=== PATIENT | female | born 1950 | race Caucasian/White ===

== ENCOUNTER 2019-04-13 11:24 | Emergency (ER) | payer OTHER ==
[~2019-04-13] VITALS: Ht 172.7 cm; Wt 129.3 kg
[2019-04-13] MEDS ORDERED: PLAVIX75 MG (12:57)
[2019-04-13] MEDS ORDERED: GABAPENTIN600 MG (12:58)
[2019-04-13] MEDS ORDERED: IRBESARTAN150 MG (12:59)
[2019-04-13] MEDS ORDERED: OMEPRAZOLE20 MG (13:00)
[2019-04-13] MEDS ORDERED: LIPITOR40 MG (13:00)
[2019-04-13] MEDS ORDERED: ANASTROZOLE1 MG (13:01)
[2019-04-13] MEDS ORDERED: HUMALOG MI100 UNIT/2 (13:01)
== END 2019-04-13 16:05 | disposition home or self-care (01) ==
LOC: ER 11:24
DX: S00.83XA Contusion of other part of head, initial encounter (principal); S80.02XA Contusion of left knee, initial encounter; S40.012A Contusion of left shoulder, initial encounter; W18.39XA Other fall on same level, initial encounter; Y93.89 Activity, other specified; Y92.098 Other place in other non-institutional residence as the place of occurrence of the external cause; Y99.8 Other external cause status

== ENCOUNTER 2023-12-16 18:21 | Emergency (ER) | payer OTHER ==
[~2023-12-16] VITALS: Ht 172.7 cm; Wt 111.6 kg
[~2023-12-16 18:21] MED LIST: ANASTROZOLE1 MG; GABAPENTIN600 MG; HUMALOG MI100 UNIT/2; IRBESARTAN150 MG; LIPITOR40 MG; OMEPRAZOLE20 MG; PLAVIX75 MG
[2023-12-16] MEDS ORDERED: HUMALOG MI100 UNIT/2 (18:30)
[2023-12-16] MEDS ORDERED: GRALISE600 MG PO (18:30)
[2023-12-16] MEDS ORDERED: PRILOSEC OTC20 MG PO (18:31)
[2023-12-16] MEDS ORDERED: PLAVIX75 MG PO (18:31)
[2023-12-16] MEDS ORDERED: LIPITOR40 M1 PO (18:31)
[2023-12-16] MEDS ORDERED: LOSARTAN POTASS50 MG PO (18:31)
== END 2023-12-16 22:46 | disposition home or self-care (01) ==
LOC: ER 18:21
DX: M54.59 Other low back pain (principal); I10 Essential (primary) hypertension; Z85.3 Personal history of malignant neoplasm of breast; E11.9 Type 2 diabetes mellitus without complications; Z79.4 Long term (current) use of insulin; I87.2 Venous insufficiency (chronic) (peripheral); E78.00 Pure hypercholesterolemia, unspecified; Z88.6 Allergy status to analgesic agent
CPT/HCPCS: 96372; 99282; J2360

== ENCOUNTER 2024-02-04 14:10 | Outpatient (CLI) | payer OTHER ==
[~2024-02-04 14:10] MED LIST changes: +GRALISE600 MG PO; +LIPITOR40 M1 PO; +LOSARTAN POTASS50 MG PO; +PLAVIX75 MG PO; +PRILOSEC OTC20 MG PO
== END 2024-02-04 14:22 | disposition home or self-care (01) ==
LOC: MAMO-SONO 14:10
DX: N60.11 Diffuse cystic mastopathy of right breast (principal); N60.12 Diffuse cystic mastopathy of left breast; Z12.31 Encounter for screening mammogram for malignant neoplasm of breast